=== PATIENT | female | born 1940 | race Two or more races ===

== ENCOUNTER 2020-07-14 08:19 | Day surgery (SDC) | payer MEDICARE, OTHER ==
[2020-07-14] VITALS (8 sets, daily range): BP systolic 121–146; BP diastolic 54–75
[~2020-07-14] VITALS: Ht 165.1 cm; Wt 66.2 kg
--- NOTE | 2020-07-14 07:13 | Anethesia Preoperative Eval ---
Anesthesia Pre-op PMH/ROS General Date of Evaluation: Jul 14, 2020 Time of Evaluation: 07:09 Anesthesiologist: tanika ASA Score: ASA 4 Mallampati Score Class I : Soft palate, uvula, fauces, pillars visible Class II: Soft palate, uvula, fauces visible Class III: Soft palate, base of uvula visible Class IV: Only hard plate visible Mallampati Classification: Class II Surgeon: renzo Diagnosis: colon screeing, hx/o gastritis Surgical Procedure: egd/colonoscopy Anesthesia History: none Social History: current smoker Family History: no anesthesia problems Allergies: Coded Allergies: No Known Allergies (Unverified , 01/02/16) Medications: see eMAR Patient NPO?: Yes Past Medical History Pulmonary: Reports: asthma, other - lung cancer Gastrointestinal/Genitourinary: Reports: other Endocrine: Reports: hypothyroidism HEENT: Reports: [place] (L), [place] (R) Musculoskeletal/Integumentary: Reports: other - back pain, joint pain, fibromyalgia PSxH Narrative: eye sx, lung sx Anesthesia Pre-op Phys. Exam Physician Exam Last Vital Signs Date Time Temp Pulse Resp B/P (MAP) Pulse Ox O2 Delivery O2 Flow Rate FiO2 07/14/20 09:39 Room Air 07/14/20 09:39 96.4 69 18 121/63 99 Constitutional: NAD Neurologic: CN 2-12 intact Cardiovascular: RRR Respiratory: CTA Gastrointestinal: S/NT/ND Airway Exam Mallampati Score: Class II MO: limited Neck: flexible TMD: 2fb ROM: limited Anesthesia Pre-op A/P Labs Microbiology Date/Time Source Procedure Growth Status 07/11/20 11:23 Nasopharynx SARS-CoV-2 RdRp Gene Assay - Final Complete Studies Pre-op Studies: EKG - nsr Risk Assessment & Plan Assessment: asa4 Plan: mac Status Change Before Surgery: No Pre-Antibiotics Drug: Trang Dunn MD Jul 14, 2020 07:13
[~2020-07-14 08:19] MED LIST: Atropine Inj 1mg/10ml Syr IVP PRN; DiphenhydrAMINE 50mg/ml Inj IVP PRN; LEXAPRO10 MG ORAL; LR 1000ml 1,000 ML IVLG SCH; Labetalol 5mg/ml 20ml vial IV PRN; Midazolam 2mg/2ml Inj IVP PRN; SYNTHROID112 MCG ORAL; fentaNYL 100 mcg/2 mL IV PRN
[2020-07-14] MEDS ORDERED: PRESERVISION L1 EACH PO (09:38)
[2020-07-14] MEDS ORDERED: LIPITOR40 MG ORAL (09:38)
[2020-07-14] MEDS ORDERED: VITAMIN D325 MC1 PO (09:38)
[2020-07-14] MEDS ORDERED: LYRICA100 MG ORAL (09:38)
--- NOTE | 2020-07-14 09:38 | Pre-Procedure Note/Attestation ---
Pre-Procedure Note/Attestation Complete Prior to Procedure Planned Procedure: not applicable Procedure Narrative: esophagogastroduodenoscopy and colonoscopy Indications for Procedure Pre-Operative Diagnosis: gerd, screening Attestation I attest that I discussed the nature of the procedure; its benefits; risks and complications; and alternatives (and the risks and benefits of such alternat arnold), prior to the procedure, with the patient (or the patient's legal rental sales representative). I attest that, if there was a reasonable possibility of needing a blood transfusion, the patient (or the patient's legal rental sales representative) was given the [facility] standardized written summary, pursuant to the [place] Blood Safety Act ([place] Health and Safety Code # 1645, as amended). I attest that I re-evaluated the patient just prior to the surgery and that there has been no change in the patient's H&P, except as documented below: Sami Lao MD Jul 14, 2020 09:38
--- NOTE | 2020-07-14 09:40 | Short Stay Surgery H&P ---
History of Present Illness History of Present Illness Chief Complaint GERD, abd pain HPI Tony Gonzalez is a 80 year old female who was admitted on for Colon Screening, Hx Of Gastritis, Diverticulitis Patient History Allergies: Coded Allergies: No Known Allergies (Unverified , 01/02/16) PAST MEDICAL HISTORY: (1) Lung cancer (2) Fibromyalgia (3) Asthma Medication History Scheduled Atorvastatin Calcium* (Lipitor*), 40 MG ORAL BEDTIME, (Reported) Cholecalciferol (Vitamin D3) (Vitamin D3*), 4,000 INTLU PO DAILY, (Reported) Levothyroxine Sodium* (Synthroid*), 112 MCG ORAL DAILY, (Reported) Pregabalin (Lyrica), 100 MG ORAL HS, (Reported) Miscellaneous Medications Vit C/Adry Ac/Lut/Copper/Znox (Preservision Lutein Softgel), 1 EACH PO, (Reported) Discontinued Medications Escitalopram Oxalate* (Lexapro*), 5 MG ORAL DAILY, (Reported) Discontinued Reason: Pt stopped taking med Review of Systems Cardiovascular: Reports: no symptoms Respiratory: Reports: no symptoms Skeletal: Reports: no symptoms Gastrointestinal: Reports: gastro esophageal reflux disease Endocrine: Reports: no symptoms Hematologic: Reports: anemia Physical Exam Skin: normal HENT: normal Heart: normal Lungs: normal Abdomen: normal Extremities: normal Plan Plan of Care EGD and colonoscopy Attestation Are the patient's medical conditions optimized for surgery? Sami Lao MD Jul 14, 2020 09:40
[2020-07-14] MEDS ORDERED: LR 1000ml ONE (10:00)
[2020-07-14] MEDS ORDERED: Lidocaine 1% MPF 10mg/ml 5ml ONE (10:00)
--- NOTE | 2020-07-14 11:13 | Endoscopy Procedure Note ---
Endoscopy Procedure Note General Indication for Procedure: colon polyps, GERD Procedures Performed: EGD, colonoscopy Operative Findings/Diagnosis: 8 polyps Specimen: yes Pt Tolerated Procedure Well: Yes Estimated Blood Loss: none Anesthesia Anesthesiologist: katheryn Anesthesia: MAC Inserted Devices Implant(s) used?: No Quality Quality of Bowel Preparation: Good Did scope reach the cecum?: Yes Was there any complications?: No GI Core Measures 50 yrs or older w/o bx or poly: No 10yrs. F/U recommended: Yes If not recommended, why?: Above average risk 18 years or older w/prev. colo: Yes <3yrs. since last colonoscopy: No Sami Lao MD Jul 14, 2020 11:13
--- NOTE | 2020-07-14 11:29 | Immediate Post-Op Evaluation ---
Immediate Post-Op Evalulation Immediate Post-Op Evalulation Procedure: egd/colonoscopy w/bx Date of Evaluation: Jul 14, 2020 Time of Evaluation: 11:24 IV Fluids: 850ml lr Blood Products: none Estimated Blood Loss: negligible Blood Pressure Systolic: 135 Blood Pressure Diastolic: 75 Pulse Rate: 65 Respiratory Rate: 18 O2 Sat by Pulse Oximetry: 100 Temperature (Fahrenheit): 97.2 Pain Score (1-10): 0 Nausea: No Vomiting: No Complications none Patient Status: awake, reacts, patent Hydration Status: adequate Drug: Trang Dunn MD Jul 14, 2020 11:29
--- NOTE | 2020-07-14 11:30 | 48 Hour Post Anesthesia Eval ---
Post Anesthesia Evaluation Procedure: egd/colonoscopy w/bx Date of Evaluation: Jul 14, 2020 Time of Evaluation: 11:30 Blood Pressure Systolic: 143 0: 59 Pulse Rate: 64 Respiratory Rate: 18 Temperature (Fahrenheit): 97.2 O2 Sat by Pulse Oximetry: 100 Airway: patent Nausea: No Vomiting: No Pain Intensity: 0 Hydration Status: adequate Cardiopulmonary Status: stable Mental Status/LOC: patient returned to baseline Post-Anesthesia Complications: none Follow-up care needed: N/A Trang Norman MD Jul 14, 2020 11:30
--- NOTE | 2020-07-14 14:45 | Procedure Note ---
DATE OF PROCEDURE: 07/14/2020 SURGEON: Sami Lao MD. PROCEDURE: 1. Upper endoscopy with biopsy. 2. Colonoscopy with polypectomy and biopsy. ANESTHESIA: Per Dr. Marcelo. INSTRUMENT: Olympus adult flexible upper endoscope and colonoscope. INDICATION: History of multiple colonic polyps in 2016, also chronic GERD. REASON FOR PROCEDURE: The procedure, risks, benefits, and possible consequences, including hemorrhage, aspiration, perforation and infection, and alternative treatments, were explained to the patient/legal guardian by Dr. Sami Lao and the patient/legal guardian understood and accepted these risks. DESCRIPTION OF PROCEDURE: After informed consent was obtained and the patient was adequately sedated, Olympus upper endoscope was advanced from mouth into the second portion of the duodenum and retroflexion was performed in the stomach. GE junction was found to be at about 35 cm from the incisors. The patient has evidence of a small hiatal hernia with irregular Z-line without any significant esophagitis. In the stomach, there was evidence of diffuse gastritis. Random biopsy from antrum and body was obtained to rule out H. pylori infection. The rest of upper endoscopic examination grossly looked within normal limits. At this time, the upper endoscope was retrieved and the patient was turned over for colonoscopy. First, rectal exam was performed, which was positive for internal hemorrhoids. Then, the scope was advanced from rectum into the cecum documented by appendiceal orifice, ileocecal valve, right upper quadrant palpation. Quality of prep was very good. This was very challenging procedure. We had polyp in the proximal ascending colon, really hiding in the fold, sessile polyp measured roughly about 7 mm. We had that to take the scope all the way out, put the Endo cap, go back and even with the Endo cap we had a very hard time to see this polyp again and but finally we were able to do a polypectomy on it and cauterized the rest of it with the tip of the snare. The patient had a total of 8 polyps in this colonoscopy examination, 3 in the ascending, 3 in the transverse, 1 in descending, and 1 in sigmoid. The one in the sigmoid and descending colon were diminutive and removed with cold biopsy forceps technique. In the transverse colon, one of them was a small and removed with the cold biopsy forceps technique. The other two with the snare polypectomy technique. All 3 polyps in the ascending colon were removed with a hot snare polypectomy technique and there were all between 5 to 8 millimeters. There was a 1 or 2 diverticula in the area of the ascending colon and right colon. Retroflexion of rectum was performed which showed evidence of internal hemorrhoids. SUMMARY OF FINDINGS: 1. Small hiatal hernia with irregular Z-line. 2. Gastritis, status post biopsy. 3. Total of 8 colonic polyps removed, see above for detail, very challenging case. We had to use the Endo cap to be able to remove some of the polyps. 4. One or two diverticula in the right colon. 5. Internal hemorrhoids. RECOMMENDATIONS: Follow pathology and treat accordingly. Given this number of the polyps and this difficulty with this the procedure, we will recommend repeat colonoscopy in one year again with Endo cap with the next procedure. I want to thank, Dr. Skyler Gonzalez, for this kind referral. Sami Lao M.D. DR: De JOB#: [id number] CC: Skyler Gonzalez M.D.; Fax#: [phone]
--- NOTE | 2020-07-18 16:55 | Cardiology Report ---
APPROVED REPORT EKG Measurement Heart [id number] <Conclusion> Normal sinus rhythm Normal ECG
== END 2020-07-14 12:25 | disposition home or self-care (01) ==
LOC: GAS 08:19
DX: K21.9 Gastro-esophageal reflux disease without esophagitis (principal); D12.2 Benign neoplasm of ascending colon; D12.4 Benign neoplasm of descending colon; D12.5 Benign neoplasm of sigmoid colon; D12.3 Benign neoplasm of transverse colon; K44.9 Diaphragmatic hernia without obstruction or gangrene; K29.50 Unspecified chronic gastritis without bleeding; K63.5 Polyp of colon; K57.30 Diverticulosis of large intestine without perforation or abscess without bleeding; K64.8 Other hemorrhoids; M79.7 Fibromyalgia; Z85.118 Personal history of other malignant neoplasm of bronchus and lung; Z79.899 Other long term (current) drug therapy; E03.9 Hypothyroidism, unspecified
CPT/HCPCS: 43239; 45380; 45385; 93005; 94003; J2704; J7120; U0002; 94150